=== PATIENT | female | born 1995 | race Caucasian/White ===

== ENCOUNTER 2017-12-01 10:49 | Emergency (ER) | payer OTHER ==
[~2017-12-01] VITALS: Ht 175.3 cm; Wt 70.9 kg
[~2017-12-01 10:49] MED LIST: CARBAMAZEPINE200 MG PO; EFFEXOR XR150 MG PO; FOCALIN XR30 MG PO
[2017-12-01 12:33] LABS: HEMOGLOBIN 14.8 G/DL (11.9-15.5); MCH 29.9 PG (29.0-34.0); MCHC 33.6 G/DL (30.0-36.0); MCV 88.9 FL (83-99); PLATELET COUNT 280 K/uL (156-360); RBC DIS.WIDTH-CV 12.8 % (11.8-14.6); RBC DIS.WIDTH-SD 41.4 % (39-53); RED BLOOD COUNT 4.95 M/uL (3.80-5.20); WHITE BLOOD COUNT 5.9 K/uL (4.1-10.2)
[2017-12-01 12:47] LABS: CHLORIDE 104 mEq/L (99-109); POTASSIUM 4.3 mEq/L (3.7-5.4); SODIUM 139 mEq/L (136-147)
[2017-12-01 12:48] LABS: GLUCOSE 84 mg/dL (70-99)
[2017-12-01 12:52] LABS: CREATININE 0.8 mg/dL (0.6-1.3); GFR ESTIMATE (CALCULATED) > 59 mL/min/
[2017-12-01 12:53] LABS: UREA NITROGEN (BUN) 18 mg/dL (9-23)
[2017-12-01 12:54] LABS: TROP-I INTERPRETATION NEGATIVE; TROPONIN-I 0.05 ng/mL (0.0-0.30)
[2017-12-01] MEDS ORDERED: MOTRIN600 MG PO (13:33)
[2017-12-01 13:39] VITALS: BP 107/76
== END 2017-12-01 13:40 | disposition home or self-care (01) ==
LOC: EME 10:49
DX: R09.1 Pleurisy (principal); F90.9 Attention-deficit hyperactivity disorder, unspecified type; F31.9 Bipolar disorder, unspecified; Z88.0 Allergy status to penicillin; Z88.8 Allergy status to other drugs, medicaments and biological substances
CPT/HCPCS: 71046; 80048; 84484; 85027; 93005; 99281; 99284